=== PATIENT | male | born 1970 | race Caucasian/White ===

== ENCOUNTER → 2017-06-20 | Outpatient (CLI) | payer BC ==
[~2017-06-20] VITALS: Ht 177.8 cm; Wt 106.3 kg
[2017-06-20 14:18] VITALS: BP 127/82; PULSE 80; Ht 177.8 cm; Wt 106.3 kg
== END | disposition home or self-care (01) ==
LOC: C.NEUR 13:55
PROVIDERS: ATTEND Physician Assistant
DX: G47.30 Sleep apnea, unspecified (principal)